=== PATIENT | female | born 1950 | race Caucasian/White ===

== ENCOUNTER 2018-01-13 20:48 | Inpatient (IN) | payer OTHER ==
[2018-01-13 21:31] LABS: ADD MAN DIFF? NO
[2018-01-13 21:34] LABS: BASOPHILS % 0.4 % (0.0-2.0); EOSINOPHILS % 0.4 % (0.0-7.0); HEMATOCRIT 33.3 % (37.0-47.0); HEMOGLOBIN 10.4 g/dl (12.0-16.0); LYMPHOCYTES # 0.7 10^3/ul (0.8-2.9); LYMPHOCYTES % 9.8 % (15.0-51.0); MEAN CORPUSCULAR HEMOGLOBIN 33.8 pg (29.0-33.0); MEAN CORPUSCULAR HGB CONC 31.2 g/dl (32.0-37.0); MEAN CORPUSCULAR VOLUME 108.1 fl (82.0-101.0); MEAN PLATELET VOLUME 9.8 fl (7.4-10.4); MONOCYTE # 0.5 10^3/ul (0.3-0.9); MONOCYTES % 7.5 % (0.0-11.0); NEUTROPHIL # 5.7 10^3/ul (1.6-7.5); NEUTROPHILS % 81.6 % (39.0-77.0); PLATELET COUNT 158 10^3/UL (140-415); RED BLOOD COUNT 3.08 10^6/ul (4.20-5.40); RED CELL DISTRIBUTION WIDTH 13.3 % (11.5-14.5)
[2018-01-13 21:50] LABS: ANION GAP 32 (8-16); CALCIUM 9.3 mg/dl (8.4-10.2); CARBON DIOXIDE 19 mmol/L (21-31); CHLORIDE 102 mmol/L (97-110); GLUCOSE 110 mg/dl (70-220); SODIUM 145 mmol/L (135-144)
[2018-01-13 21:57] LABS: CREATININE 15.59 mg/dl (0.44-1.00)
[2018-01-13 21:58] LABS: BLOOD UREA NITROGEN 129 mg/dl (7-20); POTASSIUM 7.5 mmol/L (3.5-5.1)
[2018-01-13 22:04] LABS: TROPONIN-I 0.185 ng/ml (0.000-0.120)
[2018-01-13 22:09] LABS: INR 1.08; PROTIME 14.1 Sec (11.9-14.9); PT RATIO 1.1
[2018-01-13 22:10] LABS: PARTIAL THROMBOPLASTIN TIME 53.6 Sec (25.0-35.0)
[2018-01-13] MEDS ORDERED: ACETAMINOPHEN 325 MG TAB PO (22:30)
[2018-01-13] MEDS ORDERED: ONDANSETRON 4 MG INJ IV (22:30)
[2018-01-13] MEDS: CA CHLORIDE 10% 10 ML SYRINGE IV (22:36)
[2018-01-13] MEDS: DEXTROSE 50% 50 ML SYRINGE IV (22:36)
[2018-01-13] MEDS: NA BICARBONATE 8.4% 50 ML SYG IV (22:36)
[2018-01-13] MEDS: ASPIRIN 81 MG TAB PO (22:36)
[2018-01-13] MEDS: INSULIN REGULAR, HUMAN 100 UNIT/1 ML 3ML VIAL IVP (22:40)
[2018-01-13] MEDS: ALBUTEROL 0.5% (NEB) 2.5 MG/0.5 ML AMP INH (22:45)
[2018-01-14] MEDS ORDERED: NITROGLYCERIN (SL) 0.4 MG TAB SL (05:00)
[2018-01-14] MEDS ORDERED: NACL 0.9% 3 ML SYG IV (05:00)
[2018-01-14] MEDS ORDERED: ACETAMINOPHEN 325 MG TAB PO (05:00)
[2018-01-14] MEDS ORDERED: morphine 2 MG INJ IV (05:00)
[2018-01-14] MEDS ORDERED: ONDANSETRON 4 MG INJ IV (05:00)
[2018-01-14] MEDS ORDERED: ALBUTEROL/IPRATROPIUM (NEB) 3 ML AMP HHN (05:00)
[2018-01-14 06:51] LABS: ADD MAN DIFF? NO
[2018-01-14 06:58] LABS: WHITE BLOOD COUNT 6.5 10^3/ul (4.8-10.8)
[2018-01-14 06:58] LABS: BASOPHILS % 0.2 % (0.0-2.0); EOSINOPHILS % 0.5 % (0.0-7.0); HEMATOCRIT 29.9 % (37.0-47.0); HEMOGLOBIN 9.6 g/dl (12.0-16.0); LYMPHOCYTES % 15.7 % (15.0-51.0); MEAN CORPUSCULAR HEMOGLOBIN 33.3 pg (29.0-33.0); MEAN CORPUSCULAR HGB CONC 32.1 g/dl (32.0-37.0); MEAN CORPUSCULAR VOLUME 103.8 fl (82.0-101.0); MONOCYTE # 0.6 10^3/ul (0.3-0.9); MONOCYTES % 8.8 % (0.0-11.0); NEUTROPHIL # 4.9 10^3/ul (1.6-7.5); NEUTROPHILS % 74.6 % (39.0-77.0); PLATELET COUNT 144 10^3/UL (140-415); RED BLOOD COUNT 2.88 10^6/ul (4.20-5.40); RED CELL DISTRIBUTION WIDTH 13.3 % (11.5-14.5)
[2018-01-14 07:24] LABS: CREATINE KINASE 40 IU/L (23-200)
[2018-01-14 07:31] LABS: ALANINE AMINOTRANSFERASE 6 IU/L (13-69); ALBUMIN 3.9 g/dl (3.3-4.9); ALBUMIN/GLOBULIN RATIO 1.11; ALKALINE PHOSPHATASE 115 IU/L (42-121); ANION GAP 22 (8-16); ASPARTATE AMINO TRANSFERASE 13 IU/L (15-46); BILIRUBIN,INDIRECT 0.2 mg/dl (0-1.1); BILIRUBIN,TOTAL 0.2 mg/dl (0.2-1.3); CALCIUM 9.3 mg/dl (8.4-10.2); CARBON DIOXIDE 27 mmol/L (21-31); CHLORIDE 101 mmol/L (97-110); GLUCOSE 92 mg/dl (70-220); MAGNESIUM 2.5 mg/dl (1.7-2.5); PHOSPHORUS 8.1 mg/dl (2.5-4.9); SODIUM 145 mmol/L (135-144); TOTAL PROTEIN 7.4 g/dl (6.1-8.1)
[2018-01-14 07:34] LABS: BLOOD UREA NITROGEN 84 mg/dl (7-20); CREATININE 11.03 mg/dl (0.44-1.00); POTASSIUM 5.1 mmol/L (3.5-5.1)
[2018-01-14 07:36] LABS: CK INDEX 4.6; CK-MB 1.84 ng/ml (0.0-2.4)
[2018-01-14 07:44] LABS: TROPONIN-I 0.294 ng/ml (0.000-0.120)
[2018-01-14] MEDS: HEPARIN 5,000 UNIT/0.5 ML VIAL SC ×2 (09:27→20:39)
[2018-01-14 11:53] LABS: HEPATITIS B SURFACE ANTIGEN NEGATIVE (NEGATIVE)
[2018-01-14 16:08] LABS: CREATINE KINASE 44 IU/L (23-200)
[2018-01-14 16:26] LABS: CK INDEX 4.2; CK-MB 1.85 ng/ml (0.0-2.4); TROPONIN-I 0.237 ng/ml (0.000-0.120)
[2018-01-14] MEDS: EPOETIN 10000 UNITS/1 ML INJ (ESRD) SC (17:09)
[2018-01-14] MEDS: ISOSORBIDE DINITRATE 10 MG TAB PO (21:10)
[2018-01-15 07:03] LABS: ADD MAN DIFF? NO
[2018-01-15 07:11] LABS: WHITE BLOOD COUNT 5.8 10^3/ul (4.8-10.8)
[2018-01-15 07:11] LABS: BASOPHILS % 0.5 % (0.0-2.0); EOSINOPHILS # 0.1 10^3/ul (0.0-0.5); EOSINOPHILS % 2.4 % (0.0-7.0); HEMATOCRIT 30.9 % (37.0-47.0); HEMOGLOBIN 9.6 g/dl (12.0-16.0); LYMPHOCYTES # 1.3 10^3/ul (0.8-2.9); LYMPHOCYTES % 23.2 % (15.0-51.0); MEAN CORPUSCULAR HEMOGLOBIN 33.7 pg (29.0-33.0); MEAN CORPUSCULAR HGB CONC 31.1 g/dl (32.0-37.0); MEAN CORPUSCULAR VOLUME 108.4 fl (82.0-101.0); MONOCYTE # 0.4 10^3/ul (0.3-0.9); MONOCYTES % 7.4 % (0.0-11.0); NEUTROPHIL # 3.8 10^3/ul (1.6-7.5); NEUTROPHILS % 66.3 % (39.0-77.0); PLATELET COUNT 133 10^3/UL (140-415); RED BLOOD COUNT 2.85 10^6/ul (4.20-5.40); RED CELL DISTRIBUTION WIDTH 13.4 % (11.5-14.5)
[2018-01-15 07:52] LABS: CHOLESTEROL 160 mg/dl (100-200)
[2018-01-15 07:52] LABS: CHOL/HDL RATIO 2.4 RATIO; HDL CHOLESTEROL 65 mg/dl (35-98); LDL CHOLESTEROL,CALCULATED 84 mg/dl; TRIGLYCERIDES 57 mg/dl (0-149)
[2018-01-15 07:55] LABS: ANION GAP 23 (8-16); BLOOD UREA NITROGEN 105 mg/dl (7-20); CARBON DIOXIDE 28 mmol/L (21-31); CHLORIDE 100 mmol/L (97-110); CREATININE 12.67 mg/dl (0.44-1.00); GLUCOSE 78 mg/dl (70-220); MAGNESIUM 2.7 mg/dl (1.7-2.5); PHOSPHORUS 10.3 mg/dl (2.5-4.9); SODIUM 144 mmol/L (135-144)
[2018-01-15 08:47] LABS: POTASSIUM 6.5 mmol/L (3.5-5.1)
[2018-01-15] MEDS: ISOSORBIDE DINITRATE 10 MG TAB PO ×3 (13:00→21:03)
[2018-01-15] MEDS: REGADENOSON 0.4 MG/5 ML SYG (13:25)
[2018-01-15] MEDS: HEPARIN 5,000 UNIT/0.5 ML VIAL SC ×2 (14:50→21:16)
[2018-01-16 06:34] LABS: ADD MAN DIFF? NO
[2018-01-16 06:38] LABS: BASOPHILS % 0.6 % (0.0-2.0); EOSINOPHILS # 0.2 10^3/ul (0.0-0.5); EOSINOPHILS % 3.6 % (0.0-7.0); HEMATOCRIT 28.6 % (37.0-47.0); HEMOGLOBIN 8.9 g/dl (12.0-16.0); LYMPHOCYTES # 1.4 10^3/ul (0.8-2.9); LYMPHOCYTES % 27.7 % (15.0-51.0); MEAN CORPUSCULAR HEMOGLOBIN 33.5 pg (29.0-33.0); MEAN CORPUSCULAR HGB CONC 31.1 g/dl (32.0-37.0); MEAN CORPUSCULAR VOLUME 107.5 fl (82.0-101.0); MONOCYTE # 0.6 10^3/ul (0.3-0.9); MONOCYTES % 12.5 % (0.0-11.0); NEUTROPHIL # 2.7 10^3/ul (1.6-7.5); NEUTROPHILS % 55.2 % (39.0-77.0); PLATELET COUNT 126 10^3/UL (140-415); RED BLOOD COUNT 2.66 10^6/ul (4.20-5.40); RED CELL DISTRIBUTION WIDTH 13.2 % (11.5-14.5)
[2018-01-16 06:56] LABS: ANION GAP 16 (8-16); BLOOD UREA NITROGEN 51 mg/dl (7-20); CALCIUM 8.9 mg/dl (8.4-10.2); CARBON DIOXIDE 30 mmol/L (21-31); CHLORIDE 101 mmol/L (97-110); CREATININE 7.09 mg/dl (0.44-1.00); GLUCOSE 77 mg/dl (70-220); MAGNESIUM 2.3 mg/dl (1.7-2.5); PHOSPHORUS 7.8 mg/dl (2.5-4.9); POTASSIUM 4.7 mmol/L (3.5-5.1); SODIUM 142 mmol/L (135-144)
[2018-01-16] MEDS: SEVELAMER 800 MG TAB PO ×3 (07:55→17:54)
[2018-01-16] MEDS: ISOSORBIDE DINITRATE 10 MG TAB PO ×2 (09:00→13:00)
[2018-01-16] MEDS: HEPARIN 5,000 UNIT/0.5 ML VIAL SC (09:09)
[2018-01-16 14:29] LABS: ANION GAP 21 (8-16); BLOOD UREA NITROGEN 57 mg/dl (7-20); CALCIUM 9.2 mg/dl (8.4-10.2); CARBON DIOXIDE 32 mmol/L (21-31); CHLORIDE 94 mmol/L (97-110); CREATININE 7.53 mg/dl (0.44-1.00); GLUCOSE 101 mg/dl (70-220); POTASSIUM 4.4 mmol/L (3.5-5.1); SODIUM 143 mmol/L (135-144)
== END 2018-01-16 18:48 | disposition home or self-care (01) | DRG 280 ==
LOC: TEL 22:12 → E/R 20:48
PROC: 5A1D70Z Performance of Urinary Filtration, Intermittent, Less than 6 Hours Per Day (ICD-10-PCS; principal; 2018-01-15)
DX: I13.2 Hypertensive heart and chronic kidney disease with heart failure and with stage 5 chronic kidney disease, or end stage renal disease (principal); I21.A1 Myocardial infarction type 2; N18.6 End stage renal disease; G93.40 Encephalopathy, unspecified; E87.2 Acidosis; J81.1 Chronic pulmonary edema; E87.0 Hyperosmolality and hypernatremia; I16.1 Hypertensive emergency; I42.9 Cardiomyopathy, unspecified; I16.0 Hypertensive urgency; E87.5 Hyperkalemia; Z99.2 Dependence on renal dialysis; Z91.15 Patient's noncompliance with renal dialysis; D64.9 Anemia, unspecified; E83.9 Disorder of mineral metabolism, unspecified; I08.1 Rheumatic disorders of both mitral and tricuspid valves; I50.9 Heart failure, unspecified
CPT/HCPCS: 71045; 78452; 80048; 80053; 80061; 82550; 82553; 82962; 83735; 84100; 84484; 85025; 85610; 85730; 87081; 87340; 90935; 93005; 93017; 93306; 94644; 96374; 96375; 99291-25

== ENCOUNTER 2018-03-25 20:28 | Emergency (ER) | payer OTHER ==
[2018-03-25 23:43] LABS: ADD MAN DIFF? NO
[2018-03-25 23:50] LABS: BASOPHILS % 0.3 % (0.0-2.0); EOSINOPHILS # 0.3 10^3/ul (0.0-0.5); EOSINOPHILS % 2.9 % (0.0-7.0); HEMATOCRIT 44.7 % (37.0-47.0); HEMOGLOBIN 13.8 g/dl (12.0-16.0); LYMPHOCYTES # 1.7 10^3/ul (0.8-2.9); LYMPHOCYTES % 15.5 % (15.0-51.0); MEAN CORPUSCULAR HEMOGLOBIN 32.9 pg (29.0-33.0); MEAN CORPUSCULAR HGB CONC 30.9 g/dl (32.0-37.0); MEAN CORPUSCULAR VOLUME 106.7 fl (82.0-101.0); MEAN PLATELET VOLUME 9.6 fl (7.4-10.4); MONOCYTES % 8.9 % (0.0-11.0); NEUTROPHIL # 7.9 10^3/ul (1.6-7.5); NEUTROPHILS % 72.1 % (39.0-77.0); PLATELET COUNT 198 10^3/UL (140-415); RED BLOOD COUNT 4.19 10^6/ul (4.20-5.40); RED CELL DISTRIBUTION WIDTH 14.9 % (11.5-14.5)
[2018-03-25 23:50] LABS: WHITE BLOOD COUNT 10.9 10^3/ul (4.8-10.8)
[2018-03-26 00:13] LABS: ALANINE AMINOTRANSFERASE 10 IU/L (13-69); ALBUMIN 4.2 g/dl (3.3-4.9); ALBUMIN/GLOBULIN RATIO 0.95; ALKALINE PHOSPHATASE 130 IU/L (42-121); ANION GAP 20 (8-16); ASPARTATE AMINO TRANSFERASE 20 IU/L (15-46); BILIRUBIN,INDIRECT 0.4 mg/dl (0-1.1); BILIRUBIN,TOTAL 0.4 mg/dl (0.2-1.3); BLOOD UREA NITROGEN 35 mg/dl (7-20); CALCIUM 9.5 mg/dl (8.4-10.2); CARBON DIOXIDE 27 mmol/L (21-31); CHLORIDE 93 mmol/L (97-110); CREATININE 8.02 mg/dl (0.44-1.00); GLUCOSE 98 mg/dl (70-220); LIPASE 213 U/L (23-300); POTASSIUM 3.9 mmol/L (3.5-5.1); SODIUM 136 mmol/L (135-144); TOTAL PROTEIN 8.6 g/dl (6.1-8.1)
[2018-03-26] MEDS: LIDOCAINE/MYLANTA 40 ML BTL PO (00:14)
[2018-03-26] MEDS: CEPHALEXIN 500 MG CAP PO (03:08)
[2018-03-26] MEDS: FAMOTIDINE 20 MG TAB PO (03:08)
[2018-03-26] MEDS: BELLADONNA/PHENOBARBITAL TAB PO (03:09)
== END 2018-03-26 04:00 | disposition home or self-care (01) ==
LOC: E/R 20:28
DX: N39.0 Urinary tract infection, site not specified (principal); K52.9 Noninfective gastroenteritis and colitis, unspecified; I12.0 Hypertensive chronic kidney disease with stage 5 chronic kidney disease or end stage renal disease; N18.6 End stage renal disease; I50.9 Heart failure, unspecified; I25.10 Atherosclerotic heart disease of native coronary artery without angina pectoris; R40.2142 Coma scale, eyes open, spontaneous, at arrival to emergency department; R40.2252 Coma scale, best verbal response, oriented, at arrival to emergency department; R40.2362 Coma scale, best motor response, obeys commands, at arrival to emergency department; Z99.2 Dependence on renal dialysis; Z87.891 Personal history of nicotine dependence; Z79.82 Long term (current) use of aspirin
CPT/HCPCS: 74176; 80053; 83690; 85025; 99284-25

== ENCOUNTER 2018-06-19 12:42 | Inpatient (IN) | payer OTHER ==
[2018-06-19] MEDS: ACETAMINOPHEN 325 MG TAB PO (13:00)
[2018-06-19] MEDS ORDERED: HALOPERIDOL 5 MG INJ (13:01)
[2018-06-19] MEDS ORDERED: LORAZEPAM 2 MG INJ (13:15)
[2018-06-19] MEDS: HALOPERIDOL 5 MG INJ IM (13:57)
[2018-06-19] MEDS: LORAZEPAM 2 MG INJ IM (13:57)
[2018-06-19 13:58] LABS: WHITE BLOOD COUNT 13.7 10^3/ul (4.8-10.8)
[2018-06-19 13:58] LABS: ABNORMAL IP MESSAGE 1; HEMATOCRIT 28.4 % (37.0-47.0); HEMOGLOBIN 8.7 g/dl (12.0-16.0); MEAN CORPUSCULAR HEMOGLOBIN 32.8 pg (29.0-33.0); MEAN CORPUSCULAR HGB CONC 30.6 g/dl (32.0-37.0); MEAN CORPUSCULAR VOLUME 107.2 fl (82.0-101.0); MEAN PLATELET VOLUME 9.9 fl (7.4-10.4); PLATELET COUNT 177 10^3/UL (140-415); RED BLOOD COUNT 2.65 10^6/ul (4.20-5.40); RED CELL DISTRIBUTION WIDTH 15.8 % (11.5-14.5)
[2018-06-19 13:59] LABS: ADD MAN DIFF? YES; POSITIVE DIFF @See below
[2018-06-19] MEDS: CEFEPIME 2GM/50 ML (PMX) 50 ML IVPB (14:05)
[2018-06-19 14:16] LABS: ANION GAP 17 (5-13); BLOOD UREA NITROGEN 59 mg/dl (7-20); CALCIUM 8.8 mg/dl (8.4-10.2); CARBON DIOXIDE 27 mmol/L (21-31); CHLORIDE 97 mmol/L (97-110); Estimated GFR 4 mL/min (>60); GLUCOSE 91 mg/dl (70-220); POTASSIUM 4.8 mmol/L (3.5-5.1); SODIUM 141 mmol/L (135-144)
[2018-06-19 14:20] LABS: INR 1.36; PT RATIO 1.3
[2018-06-19 14:21] LABS: ANISOCYTOSIS 2+ (0-0); BAND NEUTROPHILS #M 3.2 10^3/ul (0.0-0.6); BAND NEUTROPHILS % (M) 24 % (0-4); LYMPHOCYTES #M 0.9 10^3/ul (0.8-2.9); LYMPHOCYTES % (M) 7 % (15-51); METAMYELOCYTES #M 0.1 10^3/ul (0.0-0.0); METAMYELOCYTES %M 1 % (0-0); MONOCYTE #M 0.1 10^3/ul (0.3-0.9); MONOCYTES % (M) 1 % (0-11); OVALOCYTES 1+ (0-0); PLATELET ESTIMATE NORMAL; POIKILOCYTOSIS 2+ (0-0); POLYCHROMASIA 3+ (0-0); REACTIVE LYMPHOCYTES #M 0.1 10^3/ul (0.0-0.0); REACTIVE LYMPHOCYTES% (M) 1 % (0-0); SEG NEUT #M 9.5 10^3/ul (1.6-7.5); SEGMENTED NEUTROPHILS (M) % 66 % (39-77); SMUDGE%M 17 % (0-0)
[2018-06-19 14:22] LABS: PARTIAL THROMBOPLASTIN TIME 54.2 Sec (23.0-35.0)
[2018-06-19] MEDS ORDERED: ACETAMINOPHEN 325 MG TAB PO ×2 (14:30)
[2018-06-19] MEDS ORDERED: HYDROCODONE/APAP (5/325) TAB PO (14:30)
[2018-06-19] MEDS ORDERED: NACL 0.9% 3 ML SYG IV (14:30)
[2018-06-19] MEDS ORDERED: morphine 2 MG INJ IV (14:30)
[2018-06-19] MEDS ORDERED: ONDANSETRON 4 MG INJ IV (14:30)
[2018-06-19 14:40] LABS: TROPONIN-I 0.156 ng/ml (0.000-0.120)
[2018-06-19] MEDS: VANCOMYCIN 1 GM (PMX) 250 ML IVPB (14:40)
[2018-06-19] MEDS ORDERED: LEVALBUTEROL (NEB) 0.63 MG/3 ML AMP HHN (15:00)
[2018-06-19] MEDS: PIPER-TAZO 2.25 GM (PMX) 50 ML IVPB (15:00)
[2018-06-19] MEDS ORDERED: LABETALOL HCL 20MG INJ IV (15:00)
[2018-06-19] MEDS: SOD CHLORIDE 0.9% 500 ML IV (15:10)
[2018-06-19 15:11] LABS: CREATINE KINASE 37 IU/L (23-200)
[2018-06-19] MEDS: ASPIRIN 300 MG SUPP PR (15:18)
[2018-06-19] MEDS: ISOSORBIDE MONONITRATE(SR)30 MG TAB PO (17:00)
[2018-06-19 17:03] LABS: HDL CHOLESTEROL 47 mg/dl (35-98); LDL CHOLESTEROL,CALCULATED 79 mg/dl; TRIGLYCERIDES 75 mg/dl (0-149)
[2018-06-19 17:03] LABS: CHOLESTEROL 141 mg/dl (100-200)
[2018-06-19] MEDS: CALCIUM ACETATE 667 MG CAP PO (17:31)
[2018-06-19] MEDS: SEVELAMER 800 MG TAB PO (17:32)
[2018-06-19 17:34] LABS: THYROID STIMULATING HORMONE 0.528 MIU/L (0.465-4.680)
[2018-06-19 17:40] LABS: B-TYPE NATRIURETIC PEPTIDE > 175000 PG/ML (0-125)
[2018-06-19 18:34] LABS: HEMATOCRIT 25.3 % (37.0-47.0); HEMOGLOBIN 7.7 g/dl (12.0-16.0)
[2018-06-19 20:38] LABS: TROPONIN-I 0.216 ng/ml (0.000-0.120)
[2018-06-19] MEDS: ATORVASTATIN 80 MG TAB PO (21:00)
[2018-06-19 21:05] LABS: TROPONIN-I 0.284 ng/ml (0.000-0.120)
[2018-06-20 00:36] LABS: HEMATOCRIT 26.1 % (37.0-47.0); HEMOGLOBIN 7.9 g/dl (12.0-16.0)
[2018-06-20 01:12] LABS: TROPONIN-I 0.231 ng/ml (0.000-0.120)
[2018-06-20 06:02] LABS: WHITE BLOOD COUNT 11.1 10^3/ul (4.8-10.8)
[2018-06-20 06:02] LABS: ABNORMAL IP MESSAGE 1; HEMATOCRIT 25.7 % (37.0-47.0); HEMOGLOBIN 7.8 g/dl (12.0-16.0); MEAN CORPUSCULAR HEMOGLOBIN 32.5 pg (29.0-33.0); MEAN CORPUSCULAR HGB CONC 30.4 g/dl (32.0-37.0); MEAN CORPUSCULAR VOLUME 107.1 fl (82.0-101.0); MEAN PLATELET VOLUME 10.5 fl (7.4-10.4); PLATELET COUNT 134 10^3/UL (140-415); RED CELL DISTRIBUTION WIDTH 15.9 % (11.5-14.5)
[2018-06-20 06:18] LABS: ADD MAN DIFF? YES; POSITIVE DIFF @See below
[2018-06-20] MEDS: PIPER-TAZO 2.25 GM (PMX) 50 ML IVPB ×3 (06:24→20:40)
[2018-06-20 06:41] LABS: TROPONIN-I 0.203 ng/ml (0.000-0.120)
[2018-06-20 07:16] LABS: ALBUMIN/GLOBULIN RATIO 0.96; ANION GAP 10 (5-13); BILIRUBIN,TOTAL 0.4 mg/dl (0.2-1.3); Estimated GFR 9 mL/min (>60)
[2018-06-20 07:17] LABS: ALANINE AMINOTRANSFERASE 25 IU/L (13-69); ALBUMIN 2.7 g/dl (3.3-4.9); ALKALINE PHOSPHATASE 58 IU/L (42-121); ASPARTATE AMINO TRANSFERASE 12 IU/L (15-46); BILIRUBIN,INDIRECT 0.4 mg/dl (0-1.1); BLOOD UREA NITROGEN 36 mg/dl (7-20); CALCIUM 8.8 mg/dl (8.4-10.2); CARBON DIOXIDE 26 mmol/L (21-31); CHLORIDE 103 mmol/L (97-110); CREATININE 5.04 mg/dl (0.44-1.00); GLUCOSE 69 mg/dl (70-220); MAGNESIUM 2.2 mg/dl (1.7-2.5); POTASSIUM 5.4 mmol/L (3.5-5.1); SODIUM 139 mmol/L (135-144); TOTAL PROTEIN 5.5 g/dl (6.1-8.1)
[2018-06-20] MEDS: CALCIUM ACETATE 667 MG CAP PO ×3 (08:55→18:09)
[2018-06-20] MEDS: ASPIRIN (EC) 81 MG TAB PO (08:55)
[2018-06-20] MEDS: SEVELAMER CARBONATE 800 MG TABLET PO ×3 (08:55→18:09)
[2018-06-20] MEDS: ISOSORBIDE MONONITRATE(SR)30 MG TAB PO (08:56)
[2018-06-20] MEDS: POLYETHYLENE GLYCOL 17 GM PACKET PO (12:28)
[2018-06-20 12:39] LABS: TROPONIN-I 0.118 ng/ml (0.000-0.120)
[2018-06-20 13:38] LABS: TOTAL IRON BINDING CAPACITY 169 ug/dl (241-421)
[2018-06-20 13:39] LABS: ANISOCYTOSIS 2+ (0-0); BAND NEUTROPHILS #M 4.2 10^3/ul (0.0-0.6); BAND NEUTROPHILS % (M) 38 % (0-4); BASOPHIL #M 0.1 10^3/ul (0.0-0.0); BASOPHILS % (M) 1 % (0-2); BURR CELLS 2+ (0-0); LYMPHOCYTES #M 0.6 10^3/ul (0.8-2.9); LYMPHOCYTES % (M) 6 % (15-51); METAMYELOCYTES #M 0.1 10^3/ul (0.0-0.0); METAMYELOCYTES %M 1 % (0-0); MONOCYTE #M 0.7 10^3/ul (0.3-0.9); MONOCYTES % (M) 7 % (0-11); MYELOCYTES #M 0.1 10^3/ul (0.0-0.0); MYELOCYTES % (M) 1 % (0-0); PLATELET ESTIMATE NORMAL; POIKILOCYTOSIS 3+ (0-0); SEG NEUT #M 5.6 10^3/ul (1.6-7.5); SEGMENTED NEUTROPHILS (M) % 46 % (39-77)
[2018-06-20 13:47] LABS: IRON < 10 ug/dl (35-150)
[2018-06-20 16:08] LABS: IMMEDIATE SPIN CROSSMATCH 1 1
[2018-06-20] MEDS: PANTOPRAZOLE (EC) 40 MG TAB PO (18:09)
[2018-06-20] MEDS: EPOETIN 10000 UNITS/1 ML INJ (ESRD) SC (18:10)
[2018-06-20 19:21] LABS: TROPONIN-I 0.125 ng/ml (0.000-0.120)
[2018-06-20] MEDS: ATORVASTATIN 80 MG TAB PO (20:40)
[2018-06-20] MEDS ORDERED: morphine LIQ (10 MG/5 ML) CUP PO (23:30)
[2018-06-21 01:47] LABS: TROPONIN-I 0.102 ng/ml (0.000-0.120)
[2018-06-21] MEDS: PIPER-TAZO 2.25 GM (PMX) 50 ML IVPB ×3 (06:24→23:11)
[2018-06-21] MEDS: PANTOPRAZOLE (EC) 40 MG TAB PO ×2 (06:27→17:39)
[2018-06-21 07:40] LABS: HEMATOCRIT 27.7 % (37.0-47.0); HEMOGLOBIN 8.4 g/dl (12.0-16.0); MEAN CORPUSCULAR HEMOGLOBIN 31.5 pg (29.0-33.0); MEAN CORPUSCULAR HGB CONC 30.3 g/dl (32.0-37.0); MEAN CORPUSCULAR VOLUME 103.7 fl (82.0-101.0); MEAN PLATELET VOLUME 10.3 fl (7.4-10.4); PLATELET COUNT 141 10^3/UL (140-415); RED BLOOD COUNT 2.67 10^6/ul (4.20-5.40); RED CELL DISTRIBUTION WIDTH 19.7 % (11.5-14.5)
[2018-06-21 07:40] LABS: WHITE BLOOD COUNT 10.6 10^3/ul (4.8-10.8)
[2018-06-21 07:46] LABS: ADD MAN DIFF? YES; POSITIVE DIFF @See below
[2018-06-21 08:10] LABS: ANION GAP 10 (5-13); BLOOD UREA NITROGEN 35 mg/dl (7-20); CALCIUM 8.7 mg/dl (8.4-10.2); CARBON DIOXIDE 29 mmol/L (21-31); CHLORIDE 99 mmol/L (97-110); CREATININE 3.96 mg/dl (0.44-1.00); Estimated GFR 11 mL/min (>60); GLUCOSE 84 mg/dl (70-220); MAGNESIUM 2.2 mg/dl (1.7-2.5); SODIUM 138 mmol/L (135-144)
[2018-06-21 08:20] LABS: ANISOCYTOSIS 1+ (0-0); BAND NEUTROPHILS #M 0.8 10^3/ul (0.0-0.6); BAND NEUTROPHILS % (M) 8 % (0-4); BURR CELLS 1+ (0-0); LYMPHOCYTES % (M) 10 % (15-51); MONOCYTE #M 0.2 10^3/ul (0.3-0.9); MONOCYTES % (M) 2 % (0-11); PLATELET ESTIMATE NORMAL; POIKILOCYTOSIS 3+ (0-0); POLYCHROMASIA 1+ (0-0); SEG NEUT #M 8.6 10^3/ul (1.6-7.5); SEGMENTED NEUTROPHILS (M) % 80 % (39-77); SMUDGE%M 1 % (0-0)
[2018-06-21] MEDS: ISOSORBIDE MONONITRATE(SR)30 MG TAB PO (08:52)
[2018-06-21] MEDS: POLYETHYLENE GLYCOL 17 GM PACKET PO (08:52)
[2018-06-21] MEDS: SEVELAMER CARBONATE 800 MG TABLET PO ×3 (08:52→17:39)
[2018-06-21] MEDS: CALCIUM ACETATE 667 MG CAP PO ×3 (08:52→17:39)
[2018-06-21] MEDS: ASPIRIN (EC) 81 MG TAB PO (08:53)
[2018-06-21] MEDS ORDERED: LORAZEPAM 2 MG INJ IV (14:30)
[2018-06-21] MEDS: QUETIAPINE 25 MG TAB PO (21:41)
[2018-06-21] MEDS: ATORVASTATIN 80 MG TAB PO (21:42)
[2018-06-22] MEDS: PANTOPRAZOLE (EC) 40 MG TAB PO ×2 (05:44→17:58)
[2018-06-22] MEDS: PIPER-TAZO 2.25 GM (PMX) 50 ML IVPB (05:46)
[2018-06-22] MEDS: SEVELAMER CARBONATE 800 MG TABLET PO ×3 (07:35→17:57)
[2018-06-22] MEDS: CALCIUM ACETATE 667 MG CAP PO ×3 (07:35→17:57)
[2018-06-22 08:09] LABS: ADD MAN DIFF? NO
[2018-06-22 08:24] LABS: WHITE BLOOD COUNT 7.8 10^3/ul (4.8-10.8)
[2018-06-22 08:24] LABS: BASOPHILS % 0.4 % (0.0-2.0); EOSINOPHILS # 0.3 10^3/ul (0.0-0.5); HEMATOCRIT 27.5 % (37.0-47.0); HEMOGLOBIN 8.3 g/dl (12.0-16.0); LYMPHOCYTES # 0.9 10^3/ul (0.8-2.9); LYMPHOCYTES % 12.1 % (15.0-51.0); MEAN CORPUSCULAR HEMOGLOBIN 30.9 pg (29.0-33.0); MEAN CORPUSCULAR HGB CONC 30.2 g/dl (32.0-37.0); MEAN CORPUSCULAR VOLUME 102.2 fl (82.0-101.0); MEAN PLATELET VOLUME 10.6 fl (7.4-10.4); MONOCYTE # 0.5 10^3/ul (0.3-0.9); MONOCYTES % 6.9 % (0.0-11.0); NEUTROPHIL # 5.9 10^3/ul (1.6-7.5); NEUTROPHILS % 76.1 % (39.0-77.0); PLATELET COUNT 151 10^3/UL (140-415); RED BLOOD COUNT 2.69 10^6/ul (4.20-5.40); RED CELL DISTRIBUTION WIDTH 19.2 % (11.5-14.5)
[2018-06-22 08:49] LABS: ANION GAP 11 (5-13); BLOOD UREA NITROGEN 52 mg/dl (7-20); CALCIUM 8.7 mg/dl (8.4-10.2); CARBON DIOXIDE 27 mmol/L (21-31); CHLORIDE 100 mmol/L (97-110); CREATININE 5.87 mg/dl (0.44-1.00); Estimated GFR 7 mL/min (>60); GLUCOSE 84 mg/dl (70-220); MAGNESIUM 2.6 mg/dl (1.7-2.5); PHOSPHORUS 4.9 mg/dl (2.5-4.9); POTASSIUM 4.5 mmol/L (3.5-5.1); SODIUM 138 mmol/L (135-144)
[2018-06-22] MEDS: ASPIRIN (EC) 81 MG TAB PO (10:36)
[2018-06-22] MEDS: ISOSORBIDE MONONITRATE(SR)30 MG TAB PO (10:36)
[2018-06-22] MEDS: QUETIAPINE 25 MG TAB PO (10:36)
[2018-06-22] MEDS: POLYETHYLENE GLYCOL 17 GM PACKET PO (10:37)
[2018-06-22] MEDS: CEFTRIAXONE 1 GM/50 ML (PMX) 50 ML IVPB (16:56)
[2018-06-22] MEDS: EPOETIN 10000 UNITS/1 ML INJ (ESRD) SC (17:58)
[2018-06-23] MEDS ORDERED: LISINOPRIL 5 MG TAB PO (09:00)
== END 2018-06-22 19:45 | DRG 871 ==
LOC: PP2 06-21 15:00 → E/R 12:42 → TEL 14:25
PROC: 5A1D70Z Performance of Urinary Filtration, Intermittent, Less than 6 Hours Per Day (ICD-10-PCS; principal; 2018-06-19)
PROC: 30233N1 Transfusion of Nonautologous Red Blood Cells into Peripheral Vein, Percutaneous Approach (ICD-10-PCS; 2018-06-20)
DX: A41.9 Sepsis, unspecified organism (principal); G93.41 Metabolic encephalopathy; N18.6 End stage renal disease; I50.23 Acute on chronic systolic (congestive) heart failure; I21.4 Non-ST elevation (NSTEMI) myocardial infarction; J18.9 Pneumonia, unspecified organism; R04.2 Hemoptysis; I13.2 Hypertensive heart and chronic kidney disease with heart failure and with stage 5 chronic kidney disease, or end stage renal disease; Z99.2 Dependence on renal dialysis; Z91.15 Patient's noncompliance with renal dialysis; E78.5 Hyperlipidemia, unspecified; D63.1 Anemia in chronic kidney disease; E87.5 Hyperkalemia; I34.0 Nonrheumatic mitral (valve) insufficiency
CPT/HCPCS: 36415; 36430; 70450; 70551; 71045; 71250; 76937; 80048; 80053; 80061; 82550; 82728; 82962; 83036; 83540; 83605; 83735; 83880; 84100; 84443; 84484; 85014; 85018; 85025; 85610; 85730; 86850; 86870; 86900; 86901; 86920; 87040; 90935; 93005; 93306; 96374; 99291-25